=== PATIENT | female | born 1995 ===

== ENCOUNTER 2021-12-02 07:08 | Emergency (ER) | payer MEDICAID ==
[2021-12-02 07:23] VITALS: BP 131/87
[2021-12-02 12:24] LABS: Bilirubin,Urine 2+ (Negative); Color,Urine Amber (Yellow)
[2021-12-02 12:25] LABS: Blood,Urine Negative (Negative); Ictotest,Urine Negative (Negative)
[2021-12-02 12:45] LABS: HCG Qualitative,Urine Positive (Negative)
[2021-12-02 12:53] LABS: RBC,Urine < 1.0 /HPF (0.0-6.0); WBC,Urine < 1.0 /HPF (0.0-6.0)
--- NOTE | 2021-12-03 11:01 | Electrocardiograph Report ---
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
== END 2021-12-02 18:44 | disposition left against medical advice (07) ==
LOC: EDBD → ED 07:08
DX: R07.9 Chest pain, unspecified (principal); Z53.21 Procedure and treatment not carried out due to patient leaving prior to being seen by health care provider
CPT/HCPCS: 81001; 81025; 93005